=== PATIENT | female | born 1975 ===

== ENCOUNTER 2018-07-19 07:05 | Day surgery (SDC) | payer OTHER ==
[2018-07-18 10:41] VITALS: BMI 26.9
--- NOTE | 2018-07-19 07:43 | CP.SDSHP ---
<Beverly Estrella - Last Filed: 07/19/18 07:40> Same Day Surgery [facility] & [facility] - History Proposed Procedure: EGD Pre-Op Diagnosis: Persistent heartburn. bloating. epigastic pain - Previous Medical/Surgical History Comments: GERD. gastritis. int hemorrhoids Previous Surgical History: appendectomy. cholecystectomy. tummy tuck. liposuction. tubal ligation - Allergies Allergies: Allergies No Known Allergies Allergy (Verified 07/20/17 13:36) - Current Medications Current Medications: omeprazole - Physical Exam General Appearance: no acute distress Mental Status: Alert & Oriented x3 Neuro: WNL Heart: WNL Lungs: WNL GI: WNL - {Optional Preform as Required} Abdomen: WNL - Impression Impression: epigastric pain. persistent reflux. hx of gerd Pt. Evaluated Today:Candidate for Anesthesia & Procedure: Yes - Date & Time Date: 07/19/18 Time: 07:40 Short Stay Discharge - Short Stay Discharge Admitting Diagnosis/Reason for Visit: EPIGASTRIC PAIN / HEARTBURN Disposition: HOME/ ROUTINE <Chin Espinoza - Last Filed: 07/19/18 08:44> Same Day Surgery H & P - Previous Medical/Surgical History Previous Surgical History: No tubal ligation (error) - Allergies Allergies: Allergies No Known Allergies Allergy (Verified 07/20/17 13:36) - Physical Exam Vital Signs: Vital Signs 07/19/18 07:59 Temperature 97.1 F L Pulse Rate 72 Respiratory 19 Rate Blood Pressure 126/54 L O2 Sat by Pulse 100 Oximetry Attending/Attestation - Attestation I have personally seen and examined this patient.: Yes I have fully participated in the care of the patient.: Yes I have reviewed all pertinent clinical information: Yes Notes (Text): 07/19/18 08:43 persistent heartburn and pain in spite of Rx. For EGD to assess. Risks/benefits discussed and patient understands and accepts. As above.
[2018-07-19 08:08] VITALS: O2SAT 100
[2018-07-19] MEDS ORDERED: Lactated Ringer's 500 ML IV ONE (08:44)
[2018-07-19] MEDS ORDERED: Propofol 10 mg/ml Inj (20 ML) ONE (08:47)
[2018-07-19 09:16] VITALS: TEMP 97.3
[2018-07-19 09:17] VITALS: RESP 12
[2018-07-19 09:50] VITALS: BP 123/79; PULSE 69
== END 2018-07-19 09:50 | disposition home or self-care (01) ==
LOC: C.ENDO 07:05
PROVIDERS: ATTEND Internal Medicine Gastroenterology
DX: K21.0 Gastro-esophageal reflux disease with esophagitis (principal); K29.50 Unspecified chronic gastritis without bleeding
CPT/HCPCS: 43239; 84703; 88305; 88312; 88313; 88342; J2001; J2704; J7120